=== PATIENT | female | born 1930 | race Caucasian/White ===

== ENCOUNTER 2016-09-21 21:09 | Emergency (ER) | payer SELFPAY ==
[2016-09-21 22:11] LABS: Hematocrit 37.5 % (30.3-42.9); Hemoglobin 12.6 gm/dl (10.1-14.3); Mean Corpuscular HGB Conc 34 % (30-34); Mean Corpuscular Hemoglobin 31 pg (28-32); Mean Corpuscular Volume 93 fl (79-97); Platelet Count 200 K/mm3 (140-440); Red Blood Count 4.04 M/mm3 (3.65-5.03); Red Cell Distribution Width 13.2 % (13.2-15.2); White Blood Count 9.9 K/mm3 (4.5-11.0)
[2016-09-21 22:20] LABS: INR 1.17 (0.87-1.13)
[2016-09-21 22:21] LABS: Anion Gap 18 mmol/L; Blood Urea Nitrogen 18 mg/dL (7-17); Calcium 8.7 mg/dL (8.4-10.2); Carbon Dioxide 21 mmol/L (22-30); Chloride 93.5 mmol/L (98-107); Glucose 278 mg/dL (65-100); Partial Thromboplastin Time 31.1 Sec. (24.2-36.6); Potassium 3.9 mmol/L (3.6-5.0); Sodium 129 mmol/L (137-145)
--- NOTE | 2016-09-21 22:32 | Cat Scan Report ---
FINAL REPORT PROCEDURE: CT HEAD/BRAIN WO CON TECHNIQUE: Computerized tomography of the head was performed without contrast material. HISTORY: Head laceration from fall COMPARISON: No prior studies are available for comparison. FINDINGS: Likely changes of sinusitis are present. There is opacification of the left mastoid air cells and left middle ear, suggesting otitis media and mastoiditis. No calvarial fracture is seen. Moderate diffuse volume loss is seen with compensatory enlargement of the ventricular system. Moderate periventricular hypodensities are seen likely due to chronic small vessel ischemic changes. No acute CVA is seen. No acute intracranial hemorrhage mass effect is seen. IMPRESSION: No calvarial fracture or acute intracranial hemorrhage is seen. Changes of sinusitis, left-sided otitis media and mastoiditis are seen.
--- NOTE | 2016-09-21 22:35 | Cat Scan Report ---
FINAL REPORT PROCEDURE: CT CERVICAL SPINE WO CON TECHNIQUE: Computerized tomography of the cervical spine was performed from the skull base to T1 without contrast material. HISTORY: Head laceration from fall, pain COMPARISON: No prior studies are available for comparison. FINDINGS: Cervical lordosis is preserved. Disc space narrowing and uncovertebral osteophytes are seen at C3-4 causing little central canal narrowing. Mild diffuse arthritic changes are seen in the facets without significant hypertrophy. There is no subluxation. There is no prevertebral edema. No fracture is seen. IMPRESSION: No fracture is seen.
--- NOTE | 2016-09-21 23:08 | XRay Report ---
FINAL REPORT PROCEDURE: XR FEMUR 2 LT TECHNIQUE: Two views of the left femur are obtained AP view of the chest is obtained. HISTORY: Left hip upper leg pain after fall COMPARISON: No prior studies are available for comparison. FINDINGS: There is a nondisplaced fracture of the proximal shaft of the left femur that extends into the intertrochanteric region. Diffuse vascular calcifications are seen. Prominent arthritic changes are seen in the left knee. Bones are osteopenic. AP view of the chest reveals moderate levoscoliosis. Calcification is seen of the aortic arch. The heart is normal in size. There is no focal infiltrate, pneumothorax or pleural effusion. IMPRESSION: Nondisplaced proximal femoral shaft fracture is seen. No acute chest abnormality is seen.
--- NOTE | 2016-09-21 23:10 | XRay Report ---
FINAL REPORT PROCEDURE: XR HIP 2-3V LT TECHNIQUE: AP view of the pelvis and lateral view of the left hip were obtained HISTORY: Left hip pain after falling COMPARISON: No prior studies are available for comparison. FINDINGS: There is a nondisplaced fracture of the proximal shaft of the left femur that extends into the intertrochanteric region. Bones are osteopenic. No hip dislocation is seen. Vascular calcifications are seen. Probable bone island is seen in the left iliac bone. IMPRESSION: Nondisplaced proximal left femur fracture is seen.
--- NOTE | 2016-09-21 23:11 | XRay Report ---
FINAL REPORT PROCEDURE: XR CHEST 1V AP TECHNIQUE: Chest radiograph anteroposterior view. CPT 69449 HISTORY: fall pelvis/hip/chest pain COMPARISON: No prior studies are available for comparison. FINDINGS: Moderate levoscoliosis is seen. Calcification is seen of the aortic arch. The heart is normal in size. There is no focal infiltrate, pneumothorax or pleural effusion. IMPRESSION: No acute chest abnormality is seen.
--- NOTE | 2016-09-21 23:14 | Emergency Department Report ---
ED Fall HPI - General Chief Complaint: Fall Stated Complaint: FALL Time Seen by Provider: 09/21/16 23:00 Source: family Mode of arrival: Wheelchair - History of Present Illness Initial Comments: Patient is an 85-year-old female with a history of hypothyroidism, diabetes, and chronic UTIs who presents to the ER status post as per prefabricator and family at the bedside patient mechanical fall down a few steps in the home, they reports she lost her cane and then lost her balance and fell forward. Patient now complains of laceration , above the right eye, left hand bruising, and left hip and left thigh pain. He shouldn't is normally ambulatory with a cane. Patient does not take any anticoagulants. No LOC, no seizure activity, patient murmurs entire episode. Otherwise no fevers, chills, dizziness, vision changes, hearing changes, chest pain SOB, abd pain, LOC, travel, or sick contacts - Related Data Home Medications Medication Instructions Recorded Confirmed Last Taken Insulin Glargine [Lantus] 10 unit SUB-Q QHS 09/21/16 09/21/16 Unknown Levothyroxine [Synthroid] 25 mcg PO QAM 09/21/16 09/21/16 Unknown Methenamine Mandelate 1 gm PO DAILY 09/21/16 09/21/16 Unknown Allergies Allergy/AdvReac Type Severity Reaction Status Date / Time No Known Allergies Allergy Unverified 09/21/16 21:21 ED Review of Systems ROS: Stated complaint: FALL Other details as noted in HPI Comment: All other systems reviewed and negative ED Past Medical Hx - Past Medical History Previous Medical History?: Yes Hx Diabetes: Yes Additional medical history: Hypothyroid, recurrent UTI - Social History Smoking Status: Never Smoker Substance Use Type: None - Medications Home Medications: Home Medications Medication Instructions Recorded Confirmed Last Taken Type Insulin Glargine [Lantus] 10 unit SUB-Q QHS 09/21/16 09/21/16 Unknown History Levothyroxine [Synthroid] 25 mcg PO QAM 09/21/16 09/21/16 Unknown History Methenamine Mandelate 1 gm PO DAILY 09/21/16 09/21/16 Unknown History ED Physical Exam - General Limitations: Physical Limitation General appearance: alert, in no apparent distress - Head Head exam: Present: normocephalic, other (3 cm vertical linear laceration above the R brow) - Eye Eye exam: Present: normal appearance, PERRL, EOMI, periorbital swelling, periorbital tenderness, other (R periorbital ecchymoses). Absent: conjunctival injection, nystagmus Pupils: Present: normal accommodation. Absent: unequal - ENT ENT exam: Present: normal exam, mucous membranes moist, TM's normal bilaterally , other (L ear canal irritation by qtip) - Neck Neck exam: Present: normal inspection, full ROM. Absent: tenderness, meningismus - Respiratory Respiratory exam: Present: normal lung sounds bilaterally. Absent: respiratory distress, wheezes, rales, rhonchi - Cardiovascular Cardiovascular Exam: Present: regular rate, normal rhythm, normal heart sounds. Absent: systolic murmur, diastolic murmur, rubs, gallop - GI/Abdominal GI/Abdominal exam: Present: soft, normal bowel sounds. Absent: distended, tenderness, guarding, rebound, rigid - Extremities Exam Extremities exam: Present: tenderness (L hip and L thigh), normal capillary refill, other (Ecchymoses to the dorsum of the L hand, no snuff box tenderness) . Absent: pedal edema, joint swelling, calf tenderness - Back Exam Back exam: Present: normal inspection - Neurological Exam Neurological exam: Present: alert, oriented X3 - Psychiatric Psychiatric exam: Present: normal affect, normal mood - Skin Skin exam: Present: warm, dry, intact, normal color. Absent: rash ED Course Vital Signs 09/21/16 09/21/16 09/21/16 21:31 23:15 23:30 Temperature 98.6 F Pulse Rate 93 H 89 86 Respiratory 20 24 18 Rate Blood Pressure 134/69 132/59 Blood Pressure [Left] O2 Sat by Pulse 96 96 95 Oximetry 09/22/16 09/22/16 09/22/16 00:00 00:30 01:00 Temperature Pulse Rate 88 87 85 Respiratory 23 23 22 Rate Blood Pressure 142/62 150/65 141/62 Blood Pressure [Left] O2 Sat by Pulse 96 93 95 Oximetry 09/22/16 09/22/16 09/22/16 01:30 02:00 02:30 Temperature Pulse Rate 86 87 90 Respiratory 22 22 20 Rate Blood Pressure 150/64 150/64 147/74 Blood Pressure [Left] O2 Sat by Pulse 95 94 95 Oximetry 09/22/16 09/22/16 03:00 05:30 Temperature 98.8 F Pulse Rate 89 77 Respiratory 17 18 Rate Blood Pressure 147/74 Blood Pressure 148/82 [Left] O2 Sat by Pulse 95 99 Oximetry - Laceration /Wound Repair Right Upper Eye Wound Location: head Wound Length (cm): 3 Wound's Depth, Shape: linear Wound Explored: clean Irrigated w/ Saline (ccs): 100 Betadine Prep?: No Anesthesia: Lidocaine w/ Epi Wound Debrided: minimal Wound Repaired With: sutures Suture Size/Type: 4:0, proline Number of Sutures: 4 Layer Closure?: No Sterile Dressing Applied?: Yes ED Medical Decision Making - Lab Data Result diagrams: 09/21/16 21:55 09/21/16 21:55 - Radiology Data Radiology results: report reviewed, image reviewed Chest x-ray: No acute cardiopulmonary findings Femur x-ray: There is a nondisplaced fracture of the proximal shaft of the left femur that extends into the intertrochanteric region. Diffuse vascular calcification is seen. Prominent arthritic changes are seen in the left knee. Bones are osteopenic Hip Xray: There is nonspecific fracture of the proximal shaft of the left femur CT head: No acute intracranial abnormalities seen. Left ear opacification concerning for otitis media, mastoiditis CT C-spine: No acute fracture or subluxation L hand xray: No acute fracture or dislocation as visualized by me - Medical Decision Making CT head reviewed for otitis and mastoiditis, however patient has no pain on exam , and her TM's are clear bilaterally, will not treat with antibiotics. Pt's L ear canal had some blood in it due to abrasion to the canal by a qtip Multiple calls have been made to Orthopedics for consult for L hip fracture Called house cleaner who is calling the order dispatcher chief After speaking to the chief strategy officer, it has come to realization there is no orthopedist motion and time study teacher tonight and patient will need to be transferred to a tertiary care hospital, family and patient aware. Called out to transfer center Case d/w Dr Mendez at [facility] at [phone], will accept the patient, transfer ED to ED Critical care attestation.: If time is entered above; I have spent that time in minutes in the direct care of this critically ill patient, excluding procedure time. ED Disposition Clinical Impression: Hip fracture, left, Head trauma, Laceration Disposition: [id number] ANOTHER TYPE HLTHCARE Is pt being admited?: No Condition: Stable
[2016-09-22] MEDS ORDERED: XYLOCAINE 1%/ EPI 1:100,000 INFILTRATI ONE (01:12)
[2016-09-22] MEDS ORDERED: MORPHINE IV ONE (01:47)
[2016-09-22] MEDS ORDERED: TRIPLE ANTIBIOTIC TP ONE ×2 (01:57→06:00)
[2016-09-22] MEDS ORDERED: ZOFRAN ONE (03:06)
[2016-09-22] MEDS ORDERED: ZOFRAN IV ONE (03:56)
[2016-09-22] MEDS ORDERED: POLYSPORIN TP ONE (05:48)
[2016-09-22 06:53] VITALS: BP 148/82
--- NOTE | 2016-09-22 07:21 | XRay Report ---
Left hand 3 views: History: Trauma. Findings: There is osteopenia. No fracture or dislocation. Severe arthritic changes interphalangeal joints with mild arthritic changes of the carpometacarpal joints. Impression: No definite evidence of acute fracture.
== END 2016-09-22 05:30 | disposition other institution (70) ==
LOC: ED 21:09
DX: S72.392A Other fracture of shaft of left femur, initial encounter for closed fracture (principal); S01.111A Laceration without foreign body of right eyelid and periocular area, initial encounter; S09.90XA Unspecified injury of head, initial encounter; E11.9 Type 2 diabetes mellitus without complications; Y92.89 Other specified places as the place of occurrence of the external cause; W10.8XXA Fall (on) (from) other stairs and steps, initial encounter; Y93.89 Activity, other specified; Y99.8 Other external cause status; E03.9 Hypothyroidism, unspecified; Z87.440 Personal history of urinary (tract) infections; Z79.4 Long term (current) use of insulin
CPT/HCPCS: 12013; 36415; 70450; 71010; 72125; 73130; 73502; 73552; 80048; 85027; 85610; 85730; 96374; 96375; 99285; J2270; J2405; A6250